=== PATIENT | female | born 1965 | race Hispanic/Latino ===

== ENCOUNTER 2017-06-22 08:30 | Emergency (ER) | payer SELFPAY ==
[2017-06-22 08:59] VITALS: BP 110/75
[2017-06-22 10:19] LABS: Basophils % (Auto) 0.6 % (0.0-1.8); Eosinophils % (Auto) 0.9 % (0.0-4.3); Hematocrit 43.9 % (30.3-42.9); Mean Corpuscular HGB Conc 34 % (30-34); Mean Corpuscular Hemoglobin 32 pg (28-32); Mean Corpuscular Volume 93 fl (79-97); Platelet Count 243 K/mm3 (140-440); Red Blood Count 4.71 M/mm3 (3.65-5.03); Red Cell Distribution Width 12.9 % (13.2-15.2)
[2017-06-22 10:22] LABS: Anion Gap 20 mmol/L; BUN/Creatinine Ratio 36; Blood Urea Nitrogen 18 mg/dL (7-17); Calcium 8.7 mg/dL (8.4-10.2); Carbon Dioxide 24 mmol/L (22-30); Chloride 100.7 mmol/L (98-107); Glucose 123 mg/dL (65-100); Potassium 4.2 mmol/L (3.6-5.0); Sodium 140 mmol/L (137-145)
== END 2017-06-22 13:55 | disposition left against medical advice (07) ==
LOC: ED 08:30
DX: R07.9 Chest pain, unspecified (principal); R11.0 Nausea; Z53.21 Procedure and treatment not carried out due to patient leaving prior to being seen by health care provider
CPT/HCPCS: 36415; 80048; 84484; 85025; 93005; 93010

== ENCOUNTER 2017-07-11 06:29 | Inpatient (IN) | payer OTHER ==
[2017-07-11] MEDS ORDERED: ZOFRAN IV ONE (07:00)
[2017-07-11] MEDS ORDERED: NACL 0.9% 1000 ML 1,000 ML IV ONE ×2 (07:00→07:31)
[2017-07-11] MEDS ORDERED: DILAUDID IV ONE ×2 (07:01→07:06)
[2017-07-11] MEDS ORDERED: DILAUDID ONE (07:01)
[2017-07-11] MEDS ORDERED: NACL 0.9% 500 ML 500 ML IV ONE (07:01)
--- NOTE | 2017-07-11 07:02 | Emergency Department Report ---
ED Abdominal Pain HPI - General Chief Complaint: Abdominal Pain Stated Complaint: ABDOMINAL PAIN Time Seen by Provider: 07/11/17 07:00 Source: patient, EMS (ems notes not available at time of chart dictation) - History of Present Illness Initial Comments: This is a 52-year-old female. The patient is previously unknown to this provider. She does not have a primary care doctor. She denies chronic medical conditions. Surgical history includes hysterectomy. Presents to the ear with diffuse sharp intense abdominal pain. The pain is all over. She's never had pain like this before. No fevers or chills. No chest pain. No shortness of breath. Positive nausea and vomiting 1. No dysuria. Pain decreased with IV hydromorphone. MD Complaint: abdominal pain -: Gradual Location: diffuse Severity: moderate, severe Quality: cramping, stabbing, aching Consistency: constant Improves With: medication Worsens With: movement Associated Symptoms: nausea, vomiting - Related Data Home Medications Medication Instructions Recorded Confirmed Last Taken No Known Home Medications [No 07/11/17 07/11/17 Unknown Reported Home Medications] Allergies Allergy/AdvReac Type Severity Reaction Status Date / Time No Known Allergies Allergy Verified 07/11/17 07:03 ED Review of Systems ROS: Stated complaint: ABDOMINAL PAIN Other details as noted in HPI Constitutional: malaise, weakness ENT: denies: epistaxis Respiratory: denies: cough Cardiovascular: denies: chest pain Gastrointestinal: abdominal pain Genitourinary: denies: dysuria Musculoskeletal: denies: back pain Skin: denies: lesions Neurological: weakness Psychiatric: anxiety ED Past Medical Hx - Past Medical History Additional medical history: Pneumonia - Surgical History Additional Surgical History: Hysterectomy - Social History Smoking Status: Former Smoker Substance Use Type: None - Medications Home Medications: Home Medications Medication Instructions Recorded Confirmed Last Taken Type No Known Home Medications [No 07/11/17 07/11/17 Unknown History Reported Home Medications] ED Physical Exam - General General appearance: alert, in distress, obese - Head Head exam: Present: atraumatic, normocephalic - Eye Eye exam: Present: normal appearance - ENT ENT exam: Present: normal exam, normal orophraynx, mucous membranes moist, normal external ear exam - Neck Neck exam: Present: normal inspection, full ROM. Absent: tenderness, meningismus - Respiratory Respiratory exam: Present: normal lung sounds bilaterally. Absent: respiratory distress, decreased breath sounds - Cardiovascular Cardiovascular Exam: Present: regular rate, normal rhythm, normal heart sounds. Absent: systolic murmur, diastolic murmur, rubs, gallop - GI/Abdominal GI/Abdominal exam: Present: soft, tenderness, normal bowel sounds. Absent: distended, guarding, rebound, rigid, pulsatile mass - Extremities Exam Extremities exam: Present: normal inspection, full ROM, normal capillary refill. Absent: pedal edema, joint swelling, calf tenderness - Back Exam Back exam: Present: normal inspection, full ROM. Absent: tenderness, CVA tenderness (R), paraspinal tenderness, vertebral tenderness - Neurological Exam Neurological exam: Present: alert, oriented X3, other (Extraocular movements intact. Tongue midline. No facial droop. Facial sensation intact to light touch in the V1, V2, V3 distribution bilaterally. 5 and 5 strength in 4 extremities.. Sensation is intact to light touch in 4 extremities.). Absent: motor sensory deficit - Psychiatric Psychiatric exam: Present: anxious - Skin Skin exam: Present: warm, dry, intact, normal color. Absent: rash ED Course Vital Signs 07/11/17 07/11/17 07/11/17 06:37 06:40 06:51 Temperature Pulse Rate 64 67 68 Respiratory 23 15 12 Rate Blood Pressure 114/46 114/46 Blood Pressure [Left] O2 Sat by Pulse 100 99 99 Oximetry 07/11/17 07/11/17 07/11/17 07:00 07:01 07:11 Temperature 97.6 F Pulse Rate 65 68 66 Respiratory 18 19 12 Rate Blood Pressure 114/46 114/46 114/46 Blood Pressure [Left] O2 Sat by Pulse 98 99 95 Oximetry 07/11/17 07/11/17 07/11/17 07:27 07:31 07:41 Temperature Pulse Rate 70 70 69 Respiratory 14 24 24 Rate Blood Pressure 114/46 114/46 114/46 Blood Pressure [Left] O2 Sat by Pulse Oximetry 07/11/17 07/11/17 07/11/17 07:51 08:00 08:11 Temperature Pulse Rate 79 76 73 Respiratory 17 17 12 Rate Blood Pressure 102/60 110/65 114/46 Blood Pressure [Left] O2 Sat by Pulse Oximetry 07/11/17 07/11/17 07/11/17 08:21 08:30 08:32 Temperature 97.7 F Pulse Rate 72 77 75 Respiratory 22 17 20 Rate Blood Pressure 114/46 110/67 Blood Pressure 110/65 [Left] O2 Sat by Pulse 93 98 Oximetry ED Medical Decision Making - Lab Data Result diagrams: 07/11/17 07:34 07/11/17 07:34 Vital Signs 07/11/17 07:00 Temperature 97.6 F Pulse Rate 65 Respiratory 18 Rate Blood Pressure 114/46 O2 Sat by Pulse 98 Oximetry Lab Results 07/11/17 07/11/17 Range/Units 07:34 07:34 WBC 13.6 H (4.5-11.0) K/mm3 RBC 5.01 (3.65-5.03) M/mm3 Hgb 16.2 H (10.1-14.3) gm/dl Hct 46.9 H (30.3-42.9) % MCV 94 (79-97) fl MCH 32 (28-32) pg MCHC 35 H (30-34) % RDW 13.0 L (13.2-15.2) % Plt Count 238 (140-440) K/mm3 Lymph % (Auto) 7.2 L (13.4-35.0) % [place] % (Auto) 3.9 (0.0-7.3) % Eos % (Auto) 0.1 (0.0-4.3) % Baso % (Auto) 0.1 (0.0-1.8) % Lymph # 1.0 L (1.2-5.4) K/mm3 [place] # 0.5 (0.0-0.8) K/mm3 Eos # 0.0 (0.0-0.4) K/mm3 Baso # 0.0 (0.0-0.1) K/mm3 Seg Neutrophils % 88.7 H (40.0-70.0) % Seg Neutrophils # 12.1 H (1.8-7.7) K/mm3 PT 12.4 (12.2-14.9) Sec. INR 0.88 (0.87-1.13) Lab Results 07/11/17 07/11/17 07/11/17 Range/Units 07:34 07:34 07:34 WBC 13.6 H (4.5-11.0) K/mm3 RBC 5.01 (3.65-5.03) M/mm3 Hgb 16.2 H (10.1-14.3) gm/dl Hct 46.9 H (30.3-42.9) % MCV 94 (79-97) fl MCH 32 (28-32) pg MCHC 35 H (30-34) % RDW 13.0 L (13.2-15.2) % Plt Count 238 (140-440) K/mm3 Lymph % (Auto) 7.2 L (13.4-35.0) % [place] % (Auto) 3.9 (0.0-7.3) % Eos % (Auto) 0.1 (0.0-4.3) % Baso % (Auto) 0.1 (0.0-1.8) % Lymph # 1.0 L (1.2-5.4) K/mm3 [place] # 0.5 (0.0-0.8) K/mm3 Eos # 0.0 (0.0-0.4) K/mm3 Baso # 0.0 (0.0-0.1) K/mm3 Seg Neutrophils % 88.7 H (40.0-70.0) % Seg Neutrophils # 12.1 H (1.8-7.7) K/mm3 PT 12.4 (12.2-14.9) Sec. INR 0.88 (0.87-1.13) Sodium 141 (137-145) mmol/L Potassium 4.1 (3.6-5.0) mmol/L Chloride 104.1 (98-107) mmol/L Carbon Dioxide 23 (22-30) mmol/L Anion Gap 18 mmol/L BUN 18 H (7-17) mg/dL Creatinine 0.5 L (0.7-1.2) mg/dL Estimated GFR > 60 ml/min BUN/Creatinine Ratio 36 % Glucose 144 H (65-100) mg/dL Lactic Acid (0.7-2.0) mmol/L Calcium 8.9 (8.4-10.2) mg/dL 07/11/17 Range/Units 07:34 WBC (4.5-11.0) K/mm3 RBC (3.65-5.03) M/mm3 Hgb (10.1-14.3) gm/dl Hct (30.3-42.9) % MCV (79-97) fl MCH (28-32) pg MCHC (30-34) % RDW (13.2-15.2) % Plt Count (140-440) K/mm3 Lymph % (Auto) (13.4-35.0) % [place] % (Auto) (0.0-7.3) % Eos % (Auto) (0.0-4.3) % Baso % (Auto) (0.0-1.8) % Lymph # (1.2-5.4) K/mm3 [place] # (0.0-0.8) K/mm3 Eos # (0.0-0.4) K/mm3 Baso # (0.0-0.1) K/mm3 Seg Neutrophils % (40.0-70.0) % Seg Neutrophils # (1.8-7.7) K/mm3 PT (12.2-14.9) Sec. INR (0.87-1.13) Sodium (137-145) mmol/L Potassium (3.6-5.0) mmol/L Chloride (98-107) mmol/L Carbon Dioxide (22-30) mmol/L Anion Gap mmol/L BUN (7-17) mg/dL Creatinine (0.7-1.2) mg/dL Estimated GFR ml/min BUN/Creatinine Ratio % Glucose (65-100) mg/dL Lactic Acid 2.00 (0.7-2.0) mmol/L Calcium (8.4-10.2) mg/dL - Radiology Data Radiology results: report reviewed, image reviewed interpreted by me: X-ray of the chest demonstrates elevated hemidiaphragm, air underneath the left diaphragm versus gastric bubble Differential diagnosis, included but not limited to: Pancreatitis, perforated viscus, colitis, diverticulitis, urinary tract infection assessment and plan: 52-year-old female with diffuse abdominal tenderness, appears quite uncomfortable, received multiple rounds of hydromorphone, her pain was improved, CT scan suggested pancreatitis without perforated viscus. Laboratory studies demonstrate leukocytosis. Liver panel and lipase pending. Patient is afebrile. Leukocytosis is appreciated, this may be secondary to pain and stress demargination reaction. Case is presented to the Hospital physician, Dr. Ramachandran, who accepted the patient to the medical service for pancreatitis. Critical care attestation.: If time is entered above; I have spent that time in minutes in the direct care of this critically ill patient, excluding procedure time. ED Disposition Clinical Impression: Pancreatitis Qualifiers: Chronicity: acute Pancreatitis type: other Acute pancreatitis complication: unspecified Qualified Code(s): K85.80 - Other acute pancreatitis without necrosis or infection Disposition: OP ADMIT IP TO THIS HOSP Is pt being admited?: Yes Condition: Good
[2017-07-11] MEDS ORDERED: ZOSYN/NS 4.5GM/100ML 4.5 GM/100 ML VIAL IV ONE (07:31)
--- NOTE | 2017-07-11 07:43 | Cat Scan Report ---
FINAL REPORT EXAM: CT ABDOMEN PELVIS WO CON HISTORY: abd pain TECHNIQUE: Routine axial imaging was obtained of the abdomen and pelvis without oral or IV contrast. Sagittal and coronal reconstructions were obtained. There are no previous studies available for comparison. FINDINGS: The lung bases reveal chronic changes. There are no localized infiltrates or effusions. The liver, gallbladder, spleen and adrenal glands appear normal. The kidneys show no evidence of stones or hydronephrosis. There is diffuse inflammatory changes involving the entire pancreas with peripancreatic edema. There is no evidence of pseudocyst. There is thickening of [place] fascia bilaterally. The bowel loops are normal in caliber and course. The appendix appears normal. There is no evidence of free fluid or adenopathy. In the pelvis the uterus has been removed. The bladder appears normal. There are no adnexal masses. The skeletal structures reveal disc degeneration at the L4-5 and L5-S1 levels with grade 1 anterolisthesis of L4 over L5. IMPRESSION: Acute pancreatitis. Normal appendix. Hysterectomy. Arthritic changes in the lower lumbar spine as described.
[2017-07-11 07:51] LABS: Basophils % (Auto) 0.1 % (0.0-1.8); Eosinophils % (Auto) 0.1 % (0.0-4.3); Hematocrit 46.9 % (30.3-42.9); Hemoglobin 16.2 gm/dl (10.1-14.3); Mean Corpuscular HGB Conc 35 % (30-34); Mean Corpuscular Hemoglobin 32 pg (28-32); Mean Corpuscular Volume 94 fl (79-97); Platelet Count 238 K/mm3 (140-440); Red Blood Count 5.01 M/mm3 (3.65-5.03); White Blood Count 13.6 K/mm3 (4.5-11.0)
[2017-07-11 08:02] LABS: INR 0.88 (0.87-1.13)
[2017-07-11 08:12] LABS: Anion Gap 18 mmol/L; BUN/Creatinine Ratio 36; Blood Urea Nitrogen 18 mg/dL (7-17); Calcium 8.9 mg/dL (8.4-10.2); Carbon Dioxide 23 mmol/L (22-30); Chloride 104.1 mmol/L (98-107); Glucose 144 mg/dL (65-100); Potassium 4.1 mmol/L (3.6-5.0); Sodium 141 mmol/L (137-145)
[2017-07-11 08:14] LABS: Albumin/Globulin Ratio 1.4 %; Bilirubin,Direct 1.1 mg/dL (0-0.2); Bilirubin,Indirect 0.3 mg/dL; Bilirubin,Total 1.4 mg/dL (0.1-1.2); Total Protein 6.9 g/dL (6.3-8.2)
[2017-07-11 08:28] LABS: Lipase 2920 units/L (13-60)
--- NOTE | 2017-07-11 09:26 | Ultrasound Report ---
RIGHT UPPER QUADRANT ABDOMINAL ULTRASOUND: 07/11/17 08:15:00 CLINICAL: Acute pancreatitis. FINDINGS: High-resolution ultrasound demonstrated a normal size liver with moderate diffuse increased echogenicity. No liver mass.. Normal hepatic vasculature and inferior vena cava. Normally distended gallbladder with multiple tiny calculi layering dependently in the gallbladder. The gall bladder wall measures 3.0 mm in thickness. Normal intrahepatic and extra hepatic bile ducts. The common bile duct measures 5.1 mm diameter. The pancreas is enlarged with a mildly dilated pancreatic duct measuring 3 mm. The pancreatic tail is not well imaged due to bowel gas. Mild peripancreatic fluid. No pancreatic pseudocyst identified. Normal upper abdominal aorta. The right kidney is normal and measures 11.7 x 4.5 x 5.3cm. No ascites or mass. IMPRESSION: 1. Cholelithiasis but no signs of acute cholecystitis. 2. No evidence of choledocholithiasis. 3. Acute pancreatitis. 4. Hepatic steatosis but no hepatomegaly.
--- NOTE | 2017-07-11 09:29 | XRay Report ---
AP CHEST : 07/11/17 07:13 CLINICAL: Abdominal pain and history of pneumonia. COMPARISON:A same day CT abdomen and pelvis. FINDINGS: Normal heart and pulmonary vessels. The lungs are normally expanded and clear. Air under the left hemidiaphragm is consistent with air in the distended stomach as demonstrated on the CT. No pneumoperitoneum. IMPRESSION: Normal chest.
[2017-07-11] MEDS: DILAUDID IV PRN ×3 (12:08→20:55)
--- NOTE | 2017-07-11 13:37 | History and Physical Report ---
History of Present Illness Date of examination: 07/11/17 Date of admission: 07/11/17 08:15 Chief complaint: CC : Severe Abd pain since AM History of present illness: History of Present Illness This is a 52-year-old female with no sig pmh presents to the emergency room with diffuse sharp intense abdominal pain. The pain is all over . She's never had pain like this before. No fevers or chills. No chest pain. No shortness of breath. Positive nausea and vomiting 1. No dysuria. Pain decreased with IV hydromorphone.Pain is 10/10. MD Complaint: abdominal pain -: Gradual Location: diffuse Severity: moderate, severe Quality: cramping, stabbing, aching Consistency: constant Improves With: medication Worsens With: movement Associated Symptoms: nausea, vomiting Review of Systems Stated complaint: ABDOMINAL PAIN Other details as noted in HPI - Past Medical History Additional medical history: Pneumonia - Surgical History Additional Surgical History: Hysterectomy - Social History Smoking Status: Former Smoker Substance Use Type: None Fam Hx Htn Medications and Allergies Allergies Allergy/AdvReac Type Severity Reaction Status Date / Time No Known Allergies Allergy Verified 07/11/17 07:03 Home Medications Medication Instructions Recorded Confirmed Last Taken Type No Known Home Medications [No 07/11/17 07/11/17 Unknown History Reported Home Medications] Active Meds: Active Medications Hydromorphone HCl (Dilaudid) 1 mg IV Q3H PRN PRN Reason: Pain , Severe (7-10) Last Admin: 07/11/17 12:08 Dose: 1 mg Sodium Chloride (Nacl 0.9% 1000 Ml) 1,000 mls @ 100 mls/hr IV DIRECT SAMSON Ondansetron HCl (Zofran) 4 mg IV Q3H PRN PRN Reason: Nausea And Vomiting Exam - Physical Exam Narrative exam: In some distress sec to abd pain - Constitutional Vitals: Temp Pulse Resp BP Pulse Ox 97.8 F 71 18 124/60 96 07/11/17 09:25 07/11/17 09:25 07/11/17 09:25 07/11/17 09:25 07/11/17 09:25 General appearance: Present: mild distress, well-nourished - EENT Eyes: Present: PERRL ENT: hearing intact, clear oral mucosa - Neck Neck: Present: supple, normal ROM - Respiratory Respiratory effort: normal Respiratory: bilateral: CTA - Cardiovascular Heart rate: 76 Rhythm: regular Heart Sounds: Present: S1 & S2. Absent: rub, click - Extremities Extremities: pulses symmetrical, No edema Peripheral Pulses: within normal limits - Abdominal General gastrointestinal: Present: soft, non-tender, tender, normal bowel sounds Localized gastrointestinal: tender: diffuse, guarding: diffuse, rebound: diffuse Female genitourinary: Present: normal - Rectal Rectal Exam: deferred - Integumentary Integumentary: Present: clear, warm, dry - Musculoskeletal Musculoskeletal: gait normal, strength equal bilaterally - Psychiatric Psychiatric: appropriate mood/affect, intact judgment & insight - Neurologic Neurologic: CNII-XII intact, moves all extremities - Allied Health Allied health notes reviewed: nursing, case management Results - Labs CBC & Chem 7: 07/11/17 07:34 07/11/17 07:34 Labs: Laboratory Last Values WBC 13.6 K/mm3 (4.5-11.0) H 07/11/17 07:34 RBC 5.01 M/mm3 (3.65-5.03) 07/11/17 07:34 Hgb 16.2 gm/dl (10.1-14.3) H 07/11/17 07:34 Hct 46.9 % (30.3-42.9) H 07/11/17 07:34 MCV 94 fl (79-97) 07/11/17 07:34 MCH 32 pg (28-32) 07/11/17 07:34 MCHC 35 % (30-34) H 07/11/17 07:34 RDW 13.0 % (13.2-15.2) L 07/11/17 07:34 Plt Count 238 K/mm3 (140-440) 07/11/17 07:34 Lymph % (Auto) 7.2 % (13.4-35.0) L 07/11/17 07:34 [place] % (Auto) 3.9 % (0.0-7.3) 07/11/17 07:34 Eos % (Auto) 0.1 % (0.0-4.3) 07/11/17 07:34 Baso % (Auto) 0.1 % (0.0-1.8) 07/11/17 07:34 Lymph # 1.0 K/mm3 (1.2-5.4) L 07/11/17 07:34 [place] # 0.5 K/mm3 (0.0-0.8) 07/11/17 07:34 Eos # 0.0 K/mm3 (0.0-0.4) 07/11/17 07:34 Baso # 0.0 K/mm3 (0.0-0.1) 07/11/17 07:34 Seg Neutrophils % 88.7 % (40.0-70.0) H 07/11/17 07:34 Seg Neutrophils # 12.1 K/mm3 (1.8-7.7) H 07/11/17 07:34 PT 12.4 Sec. (12.2-14.9) 07/11/17 07:34 INR 0.88 (0.87-1.13) 07/11/17 07:34 Sodium 141 mmol/L (137-145) 07/11/17 07:34 Potassium 4.1 mmol/L (3.6-5.0) 07/11/17 07:34 Chloride 104.1 mmol/L (98-107) 07/11/17 07:34 Carbon Dioxide 23 mmol/L (22-30) 07/11/17 07:34 Anion Gap 18 mmol/L 07/11/17 07:34 BUN 18 mg/dL (7-17) H 07/11/17 07:34 Creatinine 0.5 mg/dL (0.7-1.2) L 07/11/17 07:34 Estimated GFR > 60 ml/min 07/11/17 07:34 BUN/Creatinine Ratio 36 % 07/11/17 07:34 Glucose 144 mg/dL (65-100) H 07/11/17 07:34 Lactic Acid 2.00 mmol/L (0.7-2.0) 07/11/17 07:34 Calcium 8.9 mg/dL (8.4-10.2) 07/11/17 07:34 Total Bilirubin 1.40 mg/dL (0.1-1.2) H 07/11/17 07:34 Direct Bilirubin 1.1 mg/dL (0-0.2) H 07/11/17 07:34 Indirect Bilirubin 0.3 mg/dL 07/11/17 07:34 AST 949 units/L (5-40) H 07/11/17 07:34 ALT 610 units/L (7-56) H 07/11/17 07:34 Alkaline Phosphatase 166 units/L (35-129) H 07/11/17 07:34 Total Protein 6.9 g/dL (6.3-8.2) 07/11/17 07:34 Albumin 4.0 g/dL (3.9-5) 07/11/17 07:34 Albumin/Globulin Ratio 1.4 % 07/11/17 07:34 Lipase 2920 units/L (13-60) H 07/11/17 07:34 Blood Type B POSITIVE 07/11/17 07:39 Antibody Screen Negative 07/11/17 07:39 Short CBC 07/11/17 Range/Units 07:34 WBC 13.6 H (4.5-11.0) K/mm3 Hgb 16.2 H (10.1-14.3) gm/dl Hct 46.9 H (30.3-42.9) % Plt Count 238 (140-440) K/mm3 [facility] 07/11/17 07:34 Sodium 141 Potassium 4.1 Chloride 104.1 Carbon Dioxide 23 BUN 18 H Creatinine 0.5 L Glucose 144 H Calcium 8.9 Liver Function 07/11/17 Range/Units 07:34 Total Bilirubin 1.40 H (0.1-1.2) mg/dL Direct Bilirubin 1.1 H (0-0.2) mg/dL AST 949 H (5-40) units/L ALT 610 H (7-56) units/L Alkaline Phosphatase 166 H (35-129) units/L Albumin 4.0 (3.9-5) g/dL Urine 07/11/17 Range/Units 14:00 Urine Color [place] (Yellow) Urine pH 5.0 (5.0-7.0) Ur Specific [place] 1.024 (1.003-1.030) Urine Protein <15 mg/dl (Negative) mg/dL Urine Glucose (UA) Neg (Negative) mg/dL - Imaging and Cardiology Chest x-ray: report reviewed (Naf) CT scan - abdomen: report reviewed (Acute pancreatitis) US - abdomen: report reviewed (Cholelithisis ,No Dcholedocholithiasis no acute cholecystitis) Assessment and Plan Assessment and plan: Full code Advance Directives: Yes VTE prophylaxis?: Chemical Plan of care discussed with patient/family: Yes - Patient Problems (1) Acute pancreatitis Current Visit: Yes Status: Acute Qualifiers: Pancreatitis type: biliary Acute pancreatitis complication: A Plan to address problem: Acute pancreatitis probably sec to bile duct stone in view of transaminitis. May benefit from MRCP/ERCP (2) Transaminitis Current Visit: Yes Status: Acute Plan to address problem: Will get MRCP (3) Dehydration Current Visit: Yes Status: Acute Plan to address problem: IV fluids for now (4) Pain management Current Visit: Yes Status: Acute Plan to address problem: IV Dilaudid 1 mg q3h prn (5) DVT prophylaxis Current Visit: Yes Status: Acute Plan to address problem: SQ Lovenox 40 mg qd
[2017-07-11] MEDS ORDERED: DULCOLAX PR PRN (13:45)
[2017-07-11] MEDS ORDERED: MILK OF MAGNESIA PO PRN (13:45)
[2017-07-11] MEDS ORDERED: TYLENOL PO PRN (13:45)
[2017-07-11] MEDS ORDERED: PHENERGAN PR PRN (13:50)
[2017-07-11] MEDS: NACL 0.9% 1000 ML 1,000 ML IV SCH (14:26)
[2017-07-11 15:00] LABS: Bilirubin,Urine NEG (Negative); Blood,Urine NEG (Negative); Ketones,Urine NEG (Negative); Leukocyte Esterase,Urine NEG (Negative); Mucus,Urine FEW /HPF; Nitrite,Urine NEG (Negative); Protein,Urine <15 mg/dL mg/dL (Negative); WBC,Urine < 1.0 /HPF (0.0-6.0)
--- NOTE | 2017-07-11 16:06 | Consultation ---
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 Pt states she was well until 2AM, when she awoke with sudden onset epigastric pain eventually involving whole abdomen, and severe, with N/V, sweats and chills. She came to ER and has gradually improved, though she has ongoing pain. She notes that she had a transient episode of epigastric pain on 06/22, and again 4 days ago, lasting several hours. Of note, she has lost 50# since 10/2016 on the HCG diet. She denies EtOH use, and there is no hx of liver disease or risk factors. She was a Meth addict for many years, and quit 3 years ago. BMs regular, qd, no change, no GI bleed. No fevers. Past History Past Medical History: other (Pneumonia - 2010) Past Surgical History: hysterectomy Social history: smoking (Former). denies: alcohol abuse Family history: no significant family history Medications and Allergies Allergies Allergy/AdvReac Type Severity Reaction Status Date / Time No Known Allergies Allergy Verified 07/11/17 07:03 Home Medications Medication Instructions Recorded Confirmed Last Taken Type No Known Home Medications [No 07/11/17 07/11/17 Unknown History Reported Home Medications] Active Meds: Active Medications Acetaminophen (Tylenol) 650 mg PO Q4H PRN PRN Reason: Pain MILD(1-3)/Fever >100.5/WOLFF Bisacodyl (Dulcolax) 10 mg [place] QDAY PRN PRN Reason: Constipation unrelieved by MOM Hydromorphone HCl (Dilaudid) 1 mg IV Q3H PRN PRN Reason: Pain , Severe (7-10) Last Admin: 07/11/17 12:08 Dose: 1 mg Sodium Chloride (Nacl 0.9% 1000 Ml) 1,000 mls @ 100 mls/hr IV DIRECT SAMSON Last Admin: 07/11/17 14:26 Dose: 100 mls/hr Magnesium Hydroxide (Milk Of Magnesia) 30 ml PO Q4H PRN PRN Reason: Constipation Ondansetron HCl (Zofran) 4 mg IV Q3H PRN PRN Reason: Nausea And Vomiting Ondansetron HCl (Zofran) 4 mg IV Q8H PRN PRN Reason: N/V unrelieved by Reglan Promethazine HCl (Phenergan) 25 mg [place] Q6H PRN PRN Reason: N/V IF NPO AND NO IV ACCESS Review of Systems All systems: negative (as noted in HPI) Exam - Constitutional Vitals: Temp Pulse Resp BP Pulse Ox 98.3 F 85 18 133/55 94 07/11/17 15:56 07/11/17 15:56 07/11/17 15:56 07/11/17 15:56 07/11/17 15:56 General appearance: Present: mild distress - EENT Eyes: Present: PERRL, EOM intact ENT: hearing intact - Neck Neck: Present: supple, normal ROM - Respiratory Respiratory effort: normal Respiratory: bilateral: other (few crackles bilaterally) - Cardiovascular Rhythm: regular Heart Sounds: Present: S1 & S2 - Extremities Extremities: No edema - Abdominal General gastrointestinal: Present: soft, tender (Moderate diffuse in upper abdomen), normal bowel sounds - Rectal Rectal Exam: deferred - Integumentary Integumentary: Present: clear, warm, dry Results - Labs CBC & Chem 7: 07/11/17 07:34 07/11/17 07:34 - Imaging and Cardiology CT scan - abdomen: report reviewed (Diffuse pancreatitis) US - abdomen: report reviewed (Stones in gallbladder, 5.1 mm CBD, fatty liver) Assessment and Plan 1. Pancreatitis - most c/w gallstone pancreatitis. Gallstones likely precipitated by weight loss. Pt states she is better than on admission. Doubt other process. May have already passed gallstone, given improvement. - NPO, IVFs, pain control - MRCP to exclude retained stone - Surgical evaluation for GB disease 2. Elevated LFTs - likely due to gallstones and CBD stone passage. Need to exclude hepatitis. - check acute hepatitis serologies, and monitor labs.
[2017-07-11 16:55] LABS: Anion Gap TNR mmol/L; Carbon Dioxide TNR mmol/L (22-30); Chloride TNR mmol/L (98-107); Potassium TNR mmol/L (3.6-5.0); Sodium TNR mmol/L (137-145)
[2017-07-11 16:56] LABS: BUN/Creatinine Ratio TNR; Blood Urea Nitrogen TNR mg/dL (7-17); Glucose TNR mg/dL (65-100)
[2017-07-11 16:57] LABS: Alanine Aminotransferase TNR units/L (7-56); Albumin TNR g/dL (3.9-5); Albumin/Globulin Ratio TNR %; Alkaline Phosphatase TNR units/L (35-129); Bilirubin,Total TNR mg/dL (0.1-1.2); Calcium TNR mg/dL (8.4-10.2); Total Protein TNR g/dL (6.3-8.2)
[2017-07-11 17:39] LABS: Albumin/Globulin Ratio 1.4 %; Alkaline Phosphatase 172 units/L (35-129); Anion Gap 18 mmol/L; BUN/Creatinine Ratio 28; Blood Urea Nitrogen 14 mg/dL (7-17); Calcium 8.5 mg/dL (8.4-10.2); Carbon Dioxide 26 mmol/L (22-30); Chloride 101.4 mmol/L (98-107); Glucose 108 mg/dL (65-100); Potassium 4.5 mmol/L (3.6-5.0); Sodium 141 mmol/L (137-145); Total Protein 6.9 g/dL (6.3-8.2)
[2017-07-11] MEDS: ZOFRAN IV PRN ×2 (17:39→20:55)
[2017-07-11 17:51] LABS: Alanine Aminotransferase 786 units/L (7-56)
[2017-07-12] MEDS: ZOFRAN IV PRN ×3 (02:19→09:19)
[2017-07-12] MEDS: DILAUDID IV PRN ×6 (02:20→20:06)
[2017-07-12] MEDS: NACL 0.9% 1000 ML 1,000 ML IV SCH ×3 (02:22→21:58)
[2017-07-12 08:20] LABS: Basophils % (Auto) 0.2 % (0.0-1.8); Hematocrit 44.4 % (30.3-42.9); Hemoglobin 14.8 gm/dl (10.1-14.3); Mean Corpuscular HGB Conc 33 % (30-34); Mean Corpuscular Hemoglobin 31 pg (28-32); Mean Corpuscular Volume 94 fl (79-97); Platelet Count 222 K/mm3 (140-440); Red Blood Count 4.71 M/mm3 (3.65-5.03); Red Cell Distribution Width 13.6 % (13.2-15.2); White Blood Count 11.4 K/mm3 (4.5-11.0)
[2017-07-12 08:43] LABS: Alanine Aminotransferase 505 units/L (7-56); Albumin 3.7 g/dL (3.9-5); Albumin/Globulin Ratio 1.3 %; Alkaline Phosphatase 155 units/L (35-129); Anion Gap 15 mmol/L; BUN/Creatinine Ratio 20; Blood Urea Nitrogen 10 mg/dL (7-17); Calcium 8.3 mg/dL (8.4-10.2); Carbon Dioxide 27 mmol/L (22-30); Chloride 102.9 mmol/L (98-107); Glucose 114 mg/dL (65-100); Potassium 3.7 mmol/L (3.6-5.0); Sodium 141 mmol/L (137-145); Total Protein 6.6 g/dL (6.3-8.2)
--- NOTE | 2017-07-12 12:27 | Magnetic Resonance Report ---
MRI ABDOMEN WITH MRCP: 07/12/17 16:08:00 CLINICAL: Acute pancreatitis. COMPARISON:CT abdomen and pelvis 07/11/17 TECHNIQUE: Axial T1 in phase and opposed phase, coronal and axial T2 and axial T2 fat sat sequences plus thin and thick slab MRCP sequences on a 1.5 Angeline magnet. FINDINGS: The liver is enlarged with the right lobe measuring 19.5 cm in length. Homogeneous hepatic signal with moderate signal dropout on opposed phase sequence. No liver mass. The gallbladder and bile ducts are normal. The common bile duct measures 4 mm maximum diameter. No evidence of cholelithiasis or choledocholithiasis. Focal enlargement of the pancreatic head and pancreatic tail with adjacent fluid. The pancreatic body is normal. The pancreatic duct is normal. Normal stomach. Mild fold enlargement of the duodenum. The spleen is normal. Mild ascites with fluid in the paracolic gutters and mild bilateral perinephric fluid. The kidneys are otherwise normal. Normal aorta and inferior vena cava. The small bowel and colon are unremarkable. IMPRESSION: 1. Hepatic steatosis and hepatomegaly. 2. Acute pancreatitis with greater involvement of the pancreatic head and tail. No pancreatic pseudocyst. 3. Normal biliary tract with no cholelithiasis or choledocholithiasis.
--- NOTE | 2017-07-12 15:23 | Progress Note ---
Assessment and Plan Full code - Patient Problems (1) Acute pancreatitis Current Visit: Yes Status: Acute Qualifiers: Pancreatitis type: biliary Acute pancreatitis complication: A Plan to address problem: Acute pancreatitis probably sec to bile duct stone in view of transaminitis. May benefit from MRCP/ERCP (2) Transaminitis Current Visit: Yes Status: Acute Plan to address problem: Will get MRCP (3) Dehydration Current Visit: Yes Status: Acute Plan to address problem: IV fluids for now (4) Pain management Current Visit: Yes Status: Acute Plan to address problem: IV Dilaudid 1 mg q3h prn (5) DVT prophylaxis Current Visit: Yes Status: Acute Plan to address problem: SQ Lovenox 40 mg qd Subjective Date of service: 07/12/17 Principal diagnosis: Acute pancreatitis Interval history: Slightl better Objective - Exam Narrative Exam: In some distress sec to abd pain - Constitutional Vitals: Vital Signs - 12hr 07/12/17 07/12/17 06:24 07:23 Temperature 99.0 F Pulse Rate 107 H Respiratory 24 18 Rate Blood Pressure 124/65 O2 Sat by Pulse 91 Oximetry General appearance: Present: no acute distress, well-nourished - EENT Eyes: PERRL, EOM intact ENT: hearing intact, clear oral mucosa Ears: bilateral: normal - Neck Neck: supple, normal ROM - Respiratory Respiratory effort: normal Respiratory: bilateral: CTA - Breasts Breasts: normal - Cardiovascular Rhythm: regular Heart Sounds: Present: S1 & S2. Absent: gallop, rub Extremities: pulses intact, No edema, normal color, Full ROM - Gastrointestinal General gastrointestinal: Present: soft, tender, non-distended, normal bowel sounds - Genitourinary Female genitourinary: normal - Integumentary Integumentary: clear, warm, dry - Musculoskeletal Musculoskeletal: 1, strength equal bilaterally - Neurologic Neurologic: moves all extremities - Psychiatric Psychiatric: memory intact, appropriate mood/affect, intact judgment & insight - Labs CBC & Chem 7: 07/14/17 04:37 07/14/17 04:37 Labs: Abnormal lab results 07/11/17 07/12/17 07/12/17 Range/Units 17:06 07:50 07:50 WBC 11.4 H (4.5-11.0) K/mm3 Hgb 14.8 H (10.1-14.3) gm/dl Hct 44.4 H (30.3-42.9) % Lymph % (Auto) 7.4 L (13.4-35.0) % Lymph # 0.8 L (1.2-5.4) K/mm3 Seg Neutrophils % 89.0 H (40.0-70.0) % Seg Neutrophils # 10.2 H (1.8-7.7) K/mm3 Creatinine 0.5 L 0.5 L (0.7-1.2) mg/dL Glucose 108 H 114 H (65-100) mg/dL Calcium 8.3 L (8.4-10.2) mg/dL AST 834 H 259 H (5-40) units/L ALT 786 H 505 H (7-56) units/L Alkaline Phosphatase 172 H 155 H (35-129) units/L Albumin 3.7 L (3.9-5) g/dL
--- NOTE | 2017-07-12 16:46 | Progress Note ---
Assessment and Plan 1. Pancreatitis - most c/w gallstone pancreatitis. Gallstones likely precipitated by weight loss. Pt states she is better than on admission. Doubt other process. MRCP negative. - NPO, IVFs, pain control - Surgical evaluation for GB disease 2. Elevated LFTs - likely due to gallstones and CBD stone passage. Need to exclude hepatitis. - check acute hepatitis serologies, and monitor labs. Subjective Date of service: 07/12/17 Interval history: Has ongoing pain. Objective - Constitutional Vitals: Vital Signs - 12hr 07/12/17 07/12/17 07/12/17 06:24 07:23 16:33 Temperature 99.0 F 99.6 F Pulse Rate 107 H 112 H Respiratory 24 18 18 Rate Blood Pressure 124/65 106/52 O2 Sat by Pulse 91 89 Oximetry General appearance: Present: mild distress - EENT Eyes: PERRL, EOM intact ENT: hearing intact - Respiratory Respiratory effort: normal - Gastrointestinal General gastrointestinal: Present: soft, tender (Moderate diffuse) - Labs CBC & Chem 7: 07/12/17 07:50 07/12/17 07:50 Labs: Abnormal lab results 07/11/17 07/12/17 07/12/17 Range/Units 17:06 07:50 07:50 WBC 11.4 H (4.5-11.0) K/mm3 Hgb 14.8 H (10.1-14.3) gm/dl Hct 44.4 H (30.3-42.9) % Lymph % (Auto) 7.4 L (13.4-35.0) % Lymph # 0.8 L (1.2-5.4) K/mm3 Seg Neutrophils % 89.0 H (40.0-70.0) % Seg Neutrophils # 10.2 H (1.8-7.7) K/mm3 Creatinine 0.5 L 0.5 L (0.7-1.2) mg/dL Glucose 108 H 114 H (65-100) mg/dL Calcium 8.3 L (8.4-10.2) mg/dL AST 834 H 259 H (5-40) units/L ALT 786 H 505 H (7-56) units/L Alkaline Phosphatase 172 H 155 H (35-129) units/L Albumin 3.7 L (3.9-5) g/dL
[2017-07-12] MEDS ORDERED: CEPHULAC PO ONE (17:00)
[2017-07-13] MEDS: DILAUDID IV PRN ×7 (01:07→23:39)
[2017-07-13] MEDS: ZOFRAN IV PRN ×2 (04:31→13:49)
[2017-07-13] MEDS: NACL 0.9% 1000 ML 1,000 ML IV SCH ×2 (08:23→17:57)
--- NOTE | 2017-07-13 13:24 | Consultation ---
History of Present Illness Consult date: 07/13/17 Reason for consult: gallstones Requesting physician: CHARLY CASPER Chief complaint: abdominal pain, nausea, vomiting - History of present illness History of present illness: 52 yo F with no PMHx presents to hospital 2 days ago for c/o severe epigastric abdominal pain, pressure-like, that started on date of admission. Patient states she has had 2 attacks like this in the past, once in October and in May. She did present to the hospital in May with c/o chest pain and was worked up for this. She states she has had associated nausea and nonbloody/ nonbilious emesis on admission. Subjective fever. No CP, SOB. No current n/v. c/ o abdominal soreness. Pt did change her diet in October and decreased her calories to 500 germaine per day, resulting in rapid weight loss of 50 lbs over a 4 month period of time. She does not drink etoh and takes no home medications. She denies recent travel. Past History Past Medical History: other (Pneumonia - 2009) Past Surgical History: , hysterectomy Social history: smoking (Former - quit 3 years ago), other (hx of methamphetamine use...quit 3 years ago). denies: alcohol abuse (quit 3 years ago) Family history: no significant family history Medications and Allergies Allergies Allergy/AdvReac Type Severity Reaction Status Date / Time No Known Allergies Allergy Verified 07/11/17 07:03 Home Medications Medication Instructions Recorded Confirmed Last Taken Type No Known Home Medications [No 07/11/17 07/11/17 Unknown History Reported Home Medications] Active Meds: Active Medications Acetaminophen (Tylenol) 650 mg PO Q4H PRN PRN Reason: Pain MILD(1-3)/Fever >100.5/WOLFF Bisacodyl (Dulcolax) 10 mg [place] QDAY PRN PRN Reason: Constipation unrelieved by MOM Last Admin: 07/12/17 13:03 Dose: 10 mg Hydromorphone HCl (Dilaudid) 1 mg IV Q3H PRN PRN Reason: Pain , Severe (7-10) Last Admin: 07/13/17 09:43 Dose: 1 mg Sodium Chloride (Nacl 0.9% 1000 Ml) 1,000 mls @ 200 mls/hr IV DIRECT SAMSON Last Admin: 07/13/17 08:23 Dose: 100 mls/hr Magnesium Hydroxide (Milk Of Magnesia) 30 ml PO Q4H PRN PRN Reason: Constipation Ondansetron HCl (Zofran) 4 mg IV Q8H PRN PRN Reason: N/V unrelieved by Regsteph Last Admin: 07/13/17 04:31 Dose: 4 mg Promethazine HCl (Phenergan) 25 mg [place] Q6H PRN PRN Reason: N/V IF NPO AND NO IV ACCESS Review of Systems All systems: negative (see hpi) Exam Vital Signs Pulse Resp Pulse Ox 64 23 100 07/11/17 06:37 07/11/17 06:37 07/11/17 06:37 Narrative exam: Gen: AAOx3. NAD CV: s1, S2+. no m/r/g Resp: CTAB. no w/r/r Abd: soft, obese, ND, + tenderness to palpation in epigastrum. No r/r/g Ext: No c/c/e Results - Labs 07/12/17 07:50 07/12/17 07:50 - Imaging CT scan - abdomen: report reviewed ( acute pancreatitis, normal appendix, hysterectomy, arthritic changes in lumbar spine), image reviewed CT scan - pelvis: report reviewed, image reviewed US - abdomen: report reviewed (cholelithiasis but no signs of acute cholecystitis. No evidence of choledocolithiasis. acute pancreatitis, hepatic steatosis), image reviewed Additional studies: MRCP - pancreatitis. No cholelithiasis/choledocolithiasis Assessment and Plan 52 yo F with gallstone pancreatitis 1. continue NPO 2. increase IVF to NS@200cc/hr 3. prn pain and nausea control 4. DVT ppx 5. activity ad monique 6. amylase/lipase stat, trend daily 7. trend LFTs daily 8. will plan for cholecystectomy once pancreatitis is resolved, discussed plan with patient and all questions answered. D/W nursing. Thank you for this consultation, please call with any questions or concerns.
[2017-07-13] MEDS: LOVENOX SUB-Q SCH (13:55)
[2017-07-13 14:02] LABS: Amylase 55 units/L (27-131); Lipase 54 units/L (13-60)
[2017-07-13 14:04] LABS: Alanine Aminotransferase 234 units/L (7-56); Albumin 3.3 g/dL (3.9-5); Albumin/Globulin Ratio 1.2 %; Alkaline Phosphatase 121 units/L (35-129); Anion Gap 15 mmol/L; BUN/Creatinine Ratio 20; Blood Urea Nitrogen 8 mg/dL (7-17); Calcium 8.2 mg/dL (8.4-10.2); Carbon Dioxide 25 mmol/L (22-30); Chloride 101.5 mmol/L (98-107); Glucose 96 mg/dL (65-100); Potassium 3.6 mmol/L (3.6-5.0); Sodium 138 mmol/L (137-145); Total Protein 6.1 g/dL (6.3-8.2)
--- NOTE | 2017-07-13 15:41 | Anesthesia Consultation ---
Anesthesia Consult and Med Hx Date of service: 07/13/17 - Airway Anesthetic Teeth Evaluation: Good ROM Head & Neck: Adequate Mental/Hyoid Distance: Adequate Mallampati Class: Class II Intubation Access Assessment: Probably Good - Pre-Operative Health Status ASA Pre-Surgery Classification: ASA2 Proposed Anesthetic Plan: General - Pulmonary Hx Smoking: Yes (30 pack/year, quit 3 years ago) Hx Asthma: No COPD: No Hx Pneumonia: Yes - Gastrointestinal Hx Gastroesophageal Reflux Disease: Yes (gallbladder disease) - Endocrine Hx End Stage Renal Disease: No - Other Systems Hx Substance Use: Yes (Methamphetamine user for 30 years, quit 2 years ago) Hx Cancer: No Hx Obesity: Yes (BMI 39.3)
--- NOTE | 2017-07-13 20:29 | Progress Note ---
Assessment and Plan Full code - Patient Problems (1) Acute pancreatitis Current Visit: Yes Status: Acute Qualifiers: Pancreatitis type: biliary Acute pancreatitis complication: A Plan to address problem: Acute pancreatitis probably sec to bile duct stone in view of transaminitis. MRCP negative Liver enzymes trending down. Surgery consult appreciated For Cholecystectomy tomorrow (2) Cholelithiasis Current Visit: Yes Status: Acute Qualifiers: Cholelithiasis location: gallbladder Cholecystitis presence: C Cholangitis presence: C Cholecystitis acuity: C Cholangitis acuity: C Biliary obstruction: B Plan to address problem: For cholecystectomy tomorrow (3) Transaminitis Current Visit: Yes Status: Acute Plan to address problem: Transaminases improved from 834/786 to 49/234 -ast and ALT (4) Dehydration Current Visit: Yes Status: Acute Plan to address problem: IV fluids for now (5) Pain management Current Visit: Yes Status: Acute Plan to address problem: IV Dilaudid 1 mg q3h prn (6) DVT prophylaxis Current Visit: Yes Status: Acute Plan to address problem: SQ Lovenox 40 mg qd Subjective Date of service: 07/13/17 Principal diagnosis: Acute pancreatitis and cholelithiasis Interval history: Symptomatically better Objective - Exam Narrative Exam: In some distress sec to abd pain - Constitutional Vitals: Vital Signs - 12hr 07/13/17 07/13/17 07/13/17 10:00 13:49 15:50 Temperature 99.0 F Pulse Rate 98 H Respiratory 18 18 18 Rate Blood Pressure 124/72 O2 Sat by Pulse 91 Oximetry 07/13/17 20:17 Temperature Pulse Rate Respiratory 18 Rate Blood Pressure O2 Sat by Pulse Oximetry General appearance: Present: no acute distress, well-nourished - EENT Eyes: PERRL, EOM intact ENT: hearing intact, clear oral mucosa Ears: bilateral: normal - Neck Neck: supple, normal ROM - Respiratory Respiratory effort: normal Respiratory: bilateral: CTA - Breasts Breasts: normal - Cardiovascular Rhythm: regular Heart Sounds: Present: S1 & S2. Absent: gallop, rub Extremities: pulses intact, No edema, normal color, Full ROM - Gastrointestinal General gastrointestinal: Present: soft, non-tender, non-distended, normal bowel sounds - Genitourinary Female genitourinary: normal - Integumentary Integumentary: clear, warm, dry - Musculoskeletal Musculoskeletal: 1, strength equal bilaterally - Neurologic Neurologic: moves all extremities - Psychiatric Psychiatric: memory intact, appropriate mood/affect, intact judgment & insight - Labs CBC & Chem 7: 07/14/17 04:37 07/14/17 04:37 Labs: Abnormal lab results 07/13/17 Range/Units 13:17 Creatinine 0.4 L (0.7-1.2) mg/dL Calcium 8.2 L (8.4-10.2) mg/dL AST 49 H (5-40) units/L ALT 234 H (7-56) units/L Total Protein 6.1 L (6.3-8.2) g/dL Albumin 3.3 L (3.9-5) g/dL
[2017-07-14] MEDS: NACL 0.9% 1000 ML 1,000 ML IV SCH ×4 (00:22→13:15)
[2017-07-14] MEDS: ZOFRAN IV PRN (04:16)
[2017-07-14] MEDS: DILAUDID IV PRN ×3 (04:18→10:04)
[2017-07-14 05:10] LABS: Basophils % (Auto) 0.2 % (0.0-1.8); Eosinophils % (Auto) 0.4 % (0.0-4.3); Hemoglobin 12.9 gm/dl (10.1-14.3); Mean Corpuscular HGB Conc 34 % (30-34); Mean Corpuscular Hemoglobin 32 pg (28-32); Mean Corpuscular Volume 94 fl (79-97); Platelet Count 199 K/mm3 (140-440); Red Blood Count 4.07 M/mm3 (3.65-5.03); Red Cell Distribution Width 12.8 % (13.2-15.2); White Blood Count 11.4 K/mm3 (4.5-11.0)
[2017-07-14 05:22] LABS: Hematocrit 40.3 % (30.3-42.9)
[2017-07-14 05:32] LABS: Alanine Aminotransferase 169 units/L (7-56); Albumin 3.3 g/dL (3.9-5); Albumin/Globulin Ratio 1.2 %; Alkaline Phosphatase 124 units/L (35-129); Amylase 37 units/L (27-131); Anion Gap 17 mmol/L; BUN/Creatinine Ratio 23; Blood Urea Nitrogen 7 mg/dL (7-17); Calcium 7.9 mg/dL (8.4-10.2); Carbon Dioxide 23 mmol/L (22-30); Chloride 101.7 mmol/L (98-107); Glucose 86 mg/dL (65-100); Lipase 38 units/L (13-60); Potassium 3.4 mmol/L (3.6-5.0); Sodium 138 mmol/L (137-145); Total Protein 6.1 g/dL (6.3-8.2)
[2017-07-14] MEDS ORDERED: VERSED IV NR (07:00)
[2017-07-14] MEDS ORDERED: PEPCID IV NR (07:00)
--- NOTE | 2017-07-14 09:19 | Progress Note ---
Assessment and Plan Assessment and plan: 52-year-old female with no sig pmh presents to the emergency room with diffuse sharp intense abdominal pain. (1) Acute gallstone pancreatitis Current Visit: Yes Status: Acute Qualifiers: Pancreatitis type: biliary Acute pancreatitis complication: A Plan to address problem: Acute pancreatitis probably sec to bile duct stone in view of transaminitis. MRCP negative Liver enzymes trending down. Surgery consult appreciated For Cholecystectomy today (2) Cholelithiasis Current Visit: Yes Status: Acute Qualifiers: Cholelithiasis location: gallbladder Cholecystitis presence: C Cholangitis presence: C Cholecystitis acuity: C Cholangitis acuity: C Biliary obstruction: B Plan to address problem: For cholecystectomy tomorrow (3) Transaminitis Current Visit: Yes Status: Acute Plan to address problem: Transaminases improved from 834/786 to 49/234 -ast and ALT (4) Dehydration Current Visit: Yes Status: Acute Plan to address problem: IV fluids for now (5) Pain management Current Visit: Yes Status: Acute Plan to address problem: IV Dilaudid 1 mg q3h prn (6) DVT prophylaxis Current Visit: Yes Status: Acute Plan to address problem: SQ Lovenox 40 mg qd History Interval history: abdominal pain is improved today Hospitalist Physical - Constitutional Vitals: Temp Pulse Resp BP Pulse Ox 98.5 F 91 H 18 122/69 91 07/14/17 07:12 07/14/17 07:12 07/14/17 07:24 07/14/17 07:12 07/14/17 07:12 General appearance: Present: no acute distress, well-nourished - EENT Eyes: Present: PERRL, EOM intact ENT: hearing intact, clear oral mucosa - Neck Neck: Present: supple, normal ROM - Respiratory Respiratory effort: normal Respiratory: bilateral: CTA - Cardiovascular Rhythm: regular Heart Sounds: Present: S1 & S2 - Extremities Extremities: no ischemia Peripheral Pulses: within normal limits - Abdominal General gastrointestinal: soft, tender, non-distended Localized gastrointestinal: tender: epigastric periumbilical - Integumentary Integumentary: Present: clear, warm, dry - Psychiatric Psychiatric: appropriate mood/affect, intact judgment & insight - Neurologic Neurologic: CNII-XII intact - Allied Health Allied health notes reviewed: nursing Results - Labs CBC & Chem 7: 07/14/17 04:37 07/14/17 04:37 Labs: Laboratory Last Values WBC 11.4 K/mm3 (4.5-11.0) H 07/14/17 04:37 RBC 4.07 M/mm3 (3.65-5.03) 07/14/17 04:37 Hgb 12.9 gm/dl (10.1-14.3) 07/14/17 04:37 Hct 40.3 % (30.3-42.9) 07/14/17 04:37 MCV 94 fl (79-97) 07/14/17 04:37 MCH 32 pg (28-32) 07/14/17 04:37 MCHC 34 % (30-34) 07/14/17 04:37 RDW 12.8 % (13.2-15.2) L 07/14/17 04:37 Plt Count 199 K/mm3 (140-440) 07/14/17 04:37 Lymph % (Auto) 9.7 % (13.4-35.0) L 07/14/17 04:37 [place] % (Auto) 5.8 % (0.0-7.3) 07/14/17 04:37 Eos % (Auto) 0.4 % (0.0-4.3) 07/14/17 04:37 Baso % (Auto) 0.2 % (0.0-1.8) 07/14/17 04:37 Lymph # 1.1 K/mm3 (1.2-5.4) L 07/14/17 04:37 [place] # 0.7 K/mm3 (0.0-0.8) 07/14/17 04:37 Eos # 0.0 K/mm3 (0.0-0.4) 07/14/17 04:37 Baso # 0.0 K/mm3 (0.0-0.1) 07/14/17 04:37 Seg Neutrophils % 83.9 % (40.0-70.0) H 07/14/17 04:37 Seg Neutrophils # 9.6 K/mm3 (1.8-7.7) H 07/14/17 04:37 PT 12.4 Sec. (12.2-14.9) 07/11/17 07:34 INR 0.88 (0.87-1.13) 07/11/17 07:34 Sodium 138 mmol/L (137-145) 07/14/17 04:37 Potassium 3.4 mmol/L (3.6-5.0) L 07/14/17 04:37 Chloride 101.7 mmol/L (98-107) 07/14/17 04:37 Carbon Dioxide 23 mmol/L (22-30) 07/14/17 04:37 Anion Gap 17 mmol/L 07/14/17 04:37 BUN 7 mg/dL (7-17) 07/14/17 04:37 Creatinine 0.3 mg/dL (0.7-1.2) L 07/14/17 04:37 Estimated GFR > 60 ml/min 07/14/17 04:37 BUN/Creatinine Ratio 23 % 07/14/17 04:37 Glucose 86 mg/dL (65-100) 07/14/17 04:37 Lactic Acid 2.00 mmol/L (0.7-2.0) 07/11/17 07:34 Calcium 7.9 mg/dL (8.4-10.2) L 07/14/17 04:37 Total Bilirubin 0.70 mg/dL (0.1-1.2) 07/14/17 04:37 Direct Bilirubin 1.1 mg/dL (0-0.2) H 07/11/17 07:34 Indirect Bilirubin 0.3 mg/dL 07/11/17 07:34 AST 28 units/L (5-40) 07/14/17 04:37 ALT 169 units/L (7-56) H 07/14/17 04:37 Alkaline Phosphatase 124 units/L (35-129) 07/14/17 04:37 Total Protein 6.1 g/dL (6.3-8.2) L 07/14/17 04:37 Albumin 3.3 g/dL (3.9-5) L 07/14/17 04:37 Albumin/Globulin Ratio 1.2 % 07/14/17 04:37 Amylase 37 units/L (27-131) 07/14/17 04:37 Lipase 38 units/L (13-60) 07/14/17 04:37 Urine Color [place] (Yellow) 07/11/17 14:00 Urine Turbidity Clear (Clear) 07/11/17 14:00 Urine pH 5.0 (5.0-7.0) 07/11/17 14:00 Ur Specific [place] 1.024 (1.003-1.030) 07/11/17 14:00 Urine Protein <15 mg/dl mg/dL (Negative) 07/11/17 14:00 Urine Glucose (UA) Neg mg/dL (Negative) 07/11/17 14:00 Urine Ketones Neg mg/dL (Negative) 07/11/17 14:00 Urine Blood Neg (Negative) 07/11/17 14:00 Urine Nitrite Neg (Negative) 07/11/17 14:00 Urine Bilirubin Neg (Negative) 07/11/17 14:00 Urine Urobilinogen 4.0 mg/dL (<2.0) 07/11/17 14:00 Ur Leukocyte Esterase Neg (Negative) 07/11/17 14:00 Urine WBC (Auto) < 1.0 /HPF (0.0-6.0) 07/11/17 14:00 Urine RBC (Auto) 1.0 /HPF (0.0-6.0) 07/11/17 14:00 U Epithel Cells (Auto) 3.0 /HPF (0-13.0) 07/11/17 14:00 Urine Mucus Few /HPF 07/11/17 14:00 Blood Type B POSITIVE 07/11/17 07:39 Antibody Screen Negative 07/11/17 07:39
[2017-07-14] MEDS ORDERED: ceFAZolin 2 GM in NACL 0.9% 100 ML IV ONE (09:46)
[2017-07-14] MEDS ORDERED: FLAGYL 500 MG/100 ML 500 MG/100 ML BAG IV NR (10:00)
[2017-07-14] MEDS: LOVENOX SUB-Q SCH (10:03)
[2017-07-14] MEDS ORDERED: ANCEF/STERILE WATER 2 GM/20 ML 2 GM/20 ML SYRINGE IV NR (12:00)
[2017-07-14] MEDS ORDERED: DILAUDID IV PRN (12:32)
[2017-07-14] MEDS ORDERED: NEO SYNEPHRINE/NS Syringe(OR USE) IV ONE (13:00)
[2017-07-14] MEDS ORDERED: ZEMURON IV ONE (14:13)
[2017-07-14] MEDS ORDERED: SUBLIMAZE ONE (14:13)
[2017-07-14] MEDS ORDERED: XYLOCAINE MPF 2% ONE (14:13)
[2017-07-14] MEDS ORDERED: DIPRIVAN 10 MG/ML IV ONE (14:14)
[2017-07-14] MEDS ORDERED: MARCAINE 0.5% 30 ML INFILTRATI ONE (14:19)
[2017-07-14] MEDS ORDERED: XYLOCAINE 1% 20 mL ONE ×2 (14:19→14:21)
[2017-07-14] MEDS ORDERED: MARCAINE 0.5% INFILTRATI ONE ×2 (14:21→15:20)
--- NOTE | 2017-07-14 14:22 | Anesthesia Day of Surgery ---
Anesthesia Day of Surgery - Day of Surgery Patient Examined: Yes Patient H&P Reviewed: Yes Patient is NPO: Yes
--- NOTE | 2017-07-14 15:16 | Event Note ---
Date: 07/14/17 Pt off floor, to OR. Labs much improved.
[2017-07-14] MEDS ORDERED: NACL 0.9% IR ONE ×2 (15:19→15:20)
[2017-07-14] MEDS ORDERED: ZOFRAN ONE (15:50)
[2017-07-14] MEDS ORDERED: DILAUDID ONE (15:50)
--- NOTE | 2017-07-14 16:12 | Operative Report ---
Operative Report Operative Report: Date of operation: 07/14/17 Preoperative diagnosis: gallstone pancreatitis Post Operative diagnosis: same as above Procedure: Laparoscopic cholecystectomy Surgeon: Link Overton DO Anesthesia: General Findings: Large gallbladder with thick wall Specimen: Gallbladder EBL: <10cc Complications: None Condition: Stable to PACU HPI and indication: The patient is a 52 yo F with hx of obesity who presented to hospital with epigastric abdominal pain and found to have pancreatitis as a result of gallstones. She was treated with NPO, IVF, and pain medications until her pancreatitis improved and LFTs improved. She was then taken to OR for cholecystectomy. Prior to surgery, all risks were discussed with the patient including but not limited to, bile leak, bleeding, infection, and injury to other abdominal structures. All questions were answered and the patient signed consent. Procedure in detail: Patient was identified in the preoperative area and taken to the OR and placed on the OR table in supine position. After anesthesia was induced, the abdomen was prepped and draped in the usual sterile fashion and a timeout performed. 0.25% marcaine was infilitrated into all skin incision sites. A 5mm supraumbilical incision was made using a 11 blade and through this a veress needle was used to insufflate the abdomen to 15mmHg. The veress needle position was first confirmed using a saline drop test. Once the abdomen was insufflated, the veress needle was removed and a 5mm trocar was placed through the incision using visiport. The abdomen was carefully inspected and there was no injury identified to the abdominal contents. The patient was placed in reverse trendelenberg position and an addition 12mm subxyphoid port, and 2 5mm RUQ ports were placed under direct visualization. The gallbladder was grasped and lifted cephalad above the liver. The cystic artery and duct were meticulously dissected and skeletonized. The cystic plate was cleared of surrounding tissue. Once the critical view was obtained and the cystic artery and duct were the only two structures seen entering the gallbladder, 3 clips were placed on each structure proximally and one clip distally and they were transected using endoshears. The gallbladder was then taken off the liver bed using hook electrocautery. The gallbladder was placed into an endocatch bag and removed via the 12mm port. The gallbladder fossa was inspected and hemostasis carefully ensured. The clips were visualized and intact. There was no bleeding or bile leakage. The gallbladder fossa and Scruggs pouch were irrigated. The ports were then removed under direct visualization and the abdomen desufflated. The 12mm port fascia was closed using interrupted 0-vicryl stitch. The skin incisions were closed using 4-0 monocryl subcuticular stitch and skin glue. At the end of the case, all sponge, instrument, and sharp counts were correct x2. The patient was awoken from anesthesia, extubated, and taken to PACU in stable condition.
--- NOTE | 2017-07-14 16:17 | Discharge Summary ---
Providers - Providers Date of Admission: 07/11/17 08:15 Attending physician: TIEN MEJIA MD 07/11/17 13:50 Consult to Physician [CONS] Routine Consulting Provider: TA TERRELL Reason For Exam: Pancreatitis Place consult to:: DR. TERRELL Notified:: FlorSMiguel Phone number called:: [phone] Was contact made?: Yes If yes, spoke with:: JENNIFER Cannon called:: 14:14 Comment:: PAT NOTIFIED 07/13/17 12:53 Consult to Physician [CONS] Routine Consulting Provider: RONDA GARCES Reason For Exam: Cholelithiasis Place consult to:: DR. GARCES Notified:: DR. GARCES Phone number called:: IN HOUSE Was contact made?: Yes If yes, spoke with:: DR. GARCES Time called:: 13:16 Primary care physician: KRISTOFER HORAN MD Hospitalization Condition: Good Core Measure Documentation - Palliative Care Palliative Care/ Comfort Measures: Not Applicable Exam - Constitutional Vitals: Temp Pulse Resp BP Pulse Ox 100.0 F H 93 H 20 128/72 94 07/14/17 13:43 07/14/17 13:43 07/14/17 13:43 07/14/17 13:43 07/14/17 13:43 Plan Activity: other (no heavy lifting more than 15 lbs for the next 2 weeks. No driving if taking narcotic pain medications.) Diet: low fat Wound: open to air, other (may shower tomorrow, no baths/hottubs/pools until all incisions healed. Pat incisions dry, do not scrub) Follow up with: PRIMARY MD MARLINE [Primary Care Provider] - 3-5 Days RONDA GARCES DO [Staff Physician] - 14 Days Prescriptions: HYDROcodone/ACETAMINOPHEN [Vicodin HP 10-300 mg TAB] 1 each PO Q6HR #20 tablet
[2017-07-14] MEDS: NORCO 5/325 PO PRN (21:28)
[2017-07-15] MEDS: DILAUDID IV PRN ×2 (01:29→06:53)
[2017-07-15] MEDS: NACL 0.9% 1000 ML 1,000 ML IV SCH (06:53)
[2017-07-15] MEDS: NORCO 5/325 PO PRN (08:21)
[2017-07-15 08:40] VITALS: BP 104/55
--- NOTE | 2017-07-15 09:18 | Discharge Summary ---
<RONDA GARCES - Last Filed: 07/15/17 11:31> Providers - Providers Date of Admission: 07/11/17 08:15 Attending physician: TIEN MEJIA MD 07/11/17 13:50 Consult to Physician [CONS] Routine Consulting Provider: TA TERRELL Reason For Exam: Pancreatitis Place consult to:: DR. TERRELL Notified:: A.S. Phone number called:: [phone] Was contact made?: Yes If yes, spoke with:: JENNIFER Time called:: 14:14 Comment:: PAT NOTIFIED 07/13/17 12:53 Consult to Physician [CONS] Routine Consulting Provider: RONDA GARCES Reason For Exam: Cholelithiasis Place consult to:: DR. GARCES Notified:: DR. GARCES Phone number called:: IN HOUSE Was contact made?: Yes If yes, spoke with:: DR. GARCES Time called:: 13:16 Primary care physician: RAIL CAR WELDER Hospitalization Condition: Good Disposition: DC-01 TO HOME OR SELFCARE Exam - Constitutional Vitals: Temp Pulse Resp BP Pulse Ox 100.5 F H 93 H 18 104/55 91 07/15/17 07:25 07/15/17 07:25 07/15/17 07:25 07/15/17 07:25 07/15/17 07:25 Plan Activity: other (may shower, pat incisions dry, do not scrub or submerge incisions. Do not drive if taking narcotic pain medications) Diet: regular, low fat Wound: open to air Additional Instructions: call office if having intractable nausea/vomiting, temp >100.4 Follow up with: RONDA GARCES DO [Staff Physician] - 14 Days PRIMARY CARE, [Primary Care Provider] - 3-5 Days Prescriptions: HYDROcodone/ACETAMINOPHEN [Vicodin HP 10-300 mg TAB] 1 each PO Q6HR #20 tablet <TIEN MEJIA - Last Filed: 07/17/17 12:05> Providers - Providers Date of Admission: 07/11/17 08:15 Attending physician: TIEN MEJIA MD 07/11/17 13:50 Consult to Physician [CONS] Routine Consulting Provider: TA TERRELL Reason For Exam: Pancreatitis Place consult to:: DR. TERRELL Notified:: Maci Phone number called:: [phone] Was contact made?: Yes If yes, spoke with:: JENNIFER Time called:: 14:14 Comment:: KATH NOTIFIED 07/13/17 12:53 Consult to Physician [CONS] Routine Consulting Provider: RONDA GARCES Reason For Exam: Cholelithiasis Place consult to:: DR. GARCES Notified:: DR. GARCES Phone number called:: IN HOUSE Was contact made?: Yes If yes, spoke with:: DR. GARCES Time called:: 13:16 Primary care physician: RAIL CAR WELDER Hospitalization Hospital course: 52-year-old female with no sig pmh presents to the emergency room with diffuse sharp intense abdominal pain. She was found to have gallstone pancreatitis. She received IV fluids and supportive care with pain meds and antiemetics. She then went on to have a cholecystectomy. She tolerated procedure well. She was clinically improved and was subsequently discharged Discharge diagnoses Acute gallstone pancreatitis Cholelithiasis Transaminitis Dehydration Time spent for discharge: 33 minutes Core Measure Documentation - Palliative Care Palliative Care/ Comfort Measures: Not Applicable - Core Measures Any of the following diagnoses?: none Exam - Constitutional Vitals: Temp Pulse Resp BP Pulse Ox 100.5 F H 93 H 18 104/55 91 07/15/17 07:25 07/15/17 07:25 07/15/17 07:25 07/15/17 07:25 07/15/17 07:25 General appearance: Present: no acute distress, well-nourished - EENT Eyes: Present: PERRL ENT: hearing intact, clear oral mucosa - Neck Neck: Present: supple, normal ROM - Respiratory Respiratory effort: normal Respiratory: bilateral: CTA - Cardiovascular Heart Sounds: Present: S1 & S2. Absent: rub, click - Extremities Extremities: pulses symmetrical, No edema Peripheral Pulses: within normal limits - Abdominal General gastrointestinal: Present: soft, non-tender, non-distended, normal bowel sounds Female genitourinary: Present: normal - Integumentary Integumentary: Present: clear, warm, dry - Musculoskeletal Musculoskeletal: gait normal, strength equal bilaterally - Psychiatric Psychiatric: appropriate mood/affect, intact judgment & insight - Neurologic Neurologic: CNII-XII intact, moves all extremities
[2017-07-15] MEDS ORDERED: PERCOCET 5/325 PO PRN (09:40)
[2017-07-15] MEDS: LOVENOX SUB-Q SCH (09:45)
--- NOTE | 2017-07-15 11:37 | Progress Note ---
Assessment and Plan 52 yo F s/p laparoscopic cholecystectomy. POD 1 1. reg diet 2. dc IVF 3. PO pain control 4. activity as tolerated 5. incentive spirometer given to patient this am and teaching provided. encouraged to do 10x/hr 6. ok to dc from surgery standpoint f/u in office in 2 weeks for post op visit. Subjective Date of service: 07/15/17 Narrative: Pt seen and examined. c/o pain near right lateral rib area. No n/v. Tolerated diet. Tm 100.5 this am. Pt has multiple complaints this am about nursing staff overnight and not receiving breakfast this am. Objective Vital Signs - 12hr 07/15/17 07/15/17 07/15/17 01:29 01:47 01:59 Temperature Pulse Rate Respiratory 20 20 20 Rate Blood Pressure O2 Sat by Pulse Oximetry 07/15/17 07/15/17 06:53 07:25 Temperature 100.5 F H Pulse Rate 93 H Respiratory 20 18 Rate Blood Pressure 104/55 O2 Sat by Pulse 91 Oximetry - General physical appearance Narrative Exam: Gen: AAOx3. NAD CV: S1, S2+ Resp: No audible wheezes Abd: soft, ND, incisions c/d/i. mild ttp over right ribs Ext: no c/c/e - Labs 07/14/17 04:37 07/14/17 04:37
--- NOTE | 2017-07-15 12:13 | Gastroenterology Progress Note ---
Assessment and Plan 1.pancreatitis 2.elevated LFTs -MRCP negative -etiology most c/w gallstone pancreatitis - w/ stone passage -s/p cholecystectomy yesterday -labs significantly improved with T. caridad 0.7, AST 28, ALT 169, alk phos 124, lipase 38 -clinically pt is better with abd pain improved and tolerating diet -pt is okay from a GI standpoint to be d/c with f/u labs in 1-2 weeks to check LFTs at PCP office or our office -will sign off Subjective Date of service: 07/15/17 Principal diagnosis: Acute pancreatitis and cholelithiasis Interval history: Patient resting in bed. No acute distress. Abd pain improving w/o N/V. Objective - Constitutional Vitals: Temp Pulse Resp BP Pulse Ox 100.5 F H 93 H 18 104/55 91 07/15/17 07:25 07/15/17 07:25 07/15/17 07:25 07/15/17 07:25 07/15/17 07:25 General appearance: no acute distress, obese - EENT Eyes: PERRL, EOM intact ENT: hearing intact - Respiratory Respiratory: bilateral: CTA - Cardiovascular Rhythm: regular Heart Sounds: Present: S1 & S2 - Gastrointestinal General gastrointestinal: Present: soft, tender (mild tenderness RUQ), non- distended, normal bowel sounds - Integumentary Integumentary: Present: warm, dry - Neurologic Neurological: alert and oriented x3 - Labs CBC & Chem 7: 07/14/17 04:37 07/14/17 04:37
== END 2017-07-15 12:54 | disposition home or self-care (01) | DRG 418 ==
LOC: ED 06:29 → 3A 08:15
PROVIDERS: ADMIT Internal Medicine; ATTEND Internal Medicine
PROC: 0FT44ZZ Resection of Gallbladder, Percutaneous Endoscopic Approach (ICD-10-PCS; principal; 2017-07-14)
DX: K85.10 Biliary acute pancreatitis without necrosis or infection (principal); Z68.41 Body mass index [BMI] 40.0-44.9, adult; E66.9 Obesity, unspecified; E86.0 Dehydration
CPT/HCPCS: 36415; 71010; 74176; 74181; 76705; 80048; 80053; 80074; 81001; 82140; 82150; 83690; 85025; 85610; 86850; 86900; 86901; 88304; 96361; 96374; 96376; A4217; J0690; J1170; J1650; J2250; J2370; J2405; J2543; J2704; J3010; J7030